=== PATIENT | male | born 1955 | race Caucasian/White ===

== ENCOUNTER 2020-11-29 21:28 | Emergency (ER) | payer MEDICARE, OTHER ==
[~2020-11-29 21:28] MED LIST: BREO ELLIPTA 11 EACH INH; CETIRIZINE HCL10 MG PO; INCRUSE ELLI62.5 MCG INH; LIPITOR TAB 1010 MG PO; OMEPRAZOLE40 MG PO; PREDNISONE 10 M10 MG PO; PROVENTIL HFA6.7 GM INH; TOPROL XL50 MG PO; ZOLOFT100 MG PO
[2020-11-29 22:39] LABS: HEMOGLOBIN 14.3 gm/dl (14.0-17.5); RED BLOOD COUNT 4.82 M/UL (4.20-5.50); WHITE BLOOD COUNT 10.4 K/UL (4.5-11.0)
[2020-11-29 23:09] LABS: BUN/CREATININE RATIO 17 (0-10)
[2020-11-29] MEDS ORDERED: PREDNISONE20 MG PO (23:31)
== END 2020-11-29 23:49 | disposition home or self-care (01) ==
LOC: ER1 21:28
PROVIDERS: Family Medicine
DX: J44.1 Chronic obstructive pulmonary disease with (acute) exacerbation (principal)
CPT/HCPCS: 71045; 80053; 82550; 82553; 84484; 85025; 94640; 94664; 96374; 99284; J2930

== ENCOUNTER 2021-10-08 17:54 | Inpatient (IN) | payer MEDICARE, OTHER ==
[~2021-10-08] VITALS: Ht 170.2 cm; Wt 74.4 kg
[~2021-10-08 17:54] MED LIST changes: -BREO ELLIPTA 11 EACH INH; -CETIRIZINE HCL10 MG PO; -LIPITOR TAB 1010 MG PO; -OMEPRAZOLE40 MG PO; +PREDNISONE20 MG PO; -PROVENTIL HFA6.7 GM INH; -TOPROL XL50 MG PO; -ZOLOFT100 MG PO
[2021-10-08 18:54] LABS: HEMOGLOBIN 14.6 gm/dl (14.0-17.5); RED BLOOD COUNT 5.02 M/UL (4.20-5.50); WHITE BLOOD COUNT 14.6 K/UL (4.5-11.0)
[2021-10-08 19:19] LABS: BUN/CREATININE RATIO 13 (0-10)
[2021-10-09 03:09] LABS: HEMOGLOBIN 13.8 gm/dl (14.0-17.5); RED BLOOD COUNT 4.76 M/UL (4.20-5.50); WHITE BLOOD COUNT 13.6 K/UL (4.5-11.0)
[2021-10-09 03:30] LABS: BUN/CREATININE RATIO 19 (0-10)
[2021-10-10 02:34] LABS: HEMOGLOBIN 12.3 gm/dl (14.0-17.5); RED BLOOD COUNT 4.25 M/UL (4.20-5.50); WHITE BLOOD COUNT 11.4 K/UL (4.5-11.0)
[2021-10-10 02:50] LABS: BUN/CREATININE RATIO 19 (0-10)
[2021-10-11 02:10] LABS: HEMOGLOBIN 12.5 gm/dl (14.0-17.5); RED BLOOD COUNT 4.32 M/UL (4.20-5.50); WHITE BLOOD COUNT 11.7 K/UL (4.5-11.0)
[2021-10-11 02:33] LABS: BUN/CREATININE RATIO 21 (0-10)
[2021-10-11] MEDS ORDERED: LIPITOR TAB 1010 MG PO (07:39)
[2021-10-11] MEDS ORDERED: BREO ELLIPTA 21 EACH INH (07:39)
[2021-10-11] MEDS ORDERED: OMEPRAZOLE40 MG PO (07:39)
[2021-10-11] MEDS ORDERED: TOPROL XL50 MG PO (07:39)
[2021-10-11] MEDS ORDERED: ZOLOFT100 MG PO (07:40)
[2021-10-11] MEDS ORDERED: CETIRIZINE HCL10 MG PO (07:40)
[2021-10-11] MEDS ORDERED: PROVENTIL HFA6.7 GM INH (07:41)
--- NOTE | 2021-10-11 14:02 | NUR ---
10/11/21 1127 PATIENT LEFT FLOOR FOR CT GUIDED BIOPSY WITH A 20G PERIPHERAL IV IN THE RIGHT AC, UPON RETURNING TO THE FLOOR THE IV HAD BEEN REMOVED AND A 22G HAD BEEN STARTED IN THE RIGHT HAND.
[2021-10-11] MEDS ORDERED: SPIRIVA RESPIMAT4 GM INH (15:28)
[2021-10-11] MEDS ORDERED: ONDANSETRON ODT8 MG PO (15:29)
[2021-10-11] MEDS ORDERED: IPRAT-ALBUT 0.5-3 ML INH (15:29)
[2021-10-13] MEDS ORDERED: HYDROCODON-ACE1 EAC2 PO (13:48)
[2021-10-13] MEDS ORDERED: ELIQUIS 2.5 MG2.5 MG PO (13:48)
== END 2021-10-13 21:46 | DRG 480 ==
LOC: ER1 17:54 → CDU 20:30 → PROG CARE 20:30 → M/S 10-11 17:09
PROVIDERS: Internal Medicine; Orthopaedic Surgery; Physician Assistant; ADMIT Internal Medicine
PROC: B24BZZZ Ultrasonography of Heart with Aorta (ICD-10-PCS; 2021-10-09)
PROC: 0QS704Z Reposition Left Upper Femur with Internal Fixation Device, Open Approach (ICD-10-PCS; principal; 2021-10-09 10:54)
PROC: 0FB13ZX Excision of Right Lobe Liver, Percutaneous Approach, Diagnostic (ICD-10-PCS; 2021-10-11)
DX: S72.012A Unspecified intracapsular fracture of left femur, initial encounter for closed fracture (principal); J96.21 Acute and chronic respiratory failure with hypoxia; J44.1 Chronic obstructive pulmonary disease with (acute) exacerbation; C78.7 Secondary malignant neoplasm of liver and intrahepatic bile duct; C34.11 Malignant neoplasm of upper lobe, right bronchus or lung; G81.94 Hemiplegia, unspecified affecting left nondominant side; J96.11 Chronic respiratory failure with hypoxia; E44.0 Moderate protein-calorie malnutrition; M21.6X2 Other acquired deformities of left foot; M21.832 Other specified acquired deformities of left forearm; K44.9 Diaphragmatic hernia without obstruction or gangrene; Z20.822 Contact with and (suspected) exposure to COVID-19; M21.052 Valgus deformity, not elsewhere classified, left hip; E78.5 Hyperlipidemia, unspecified; C44.212 Basal cell carcinoma of skin of right ear and external auricular canal; I10 Essential (primary) hypertension; Z51.5 Encounter for palliative care; W18.30XA Fall on same level, unspecified, initial encounter; Y92.009 Unspecified place in unspecified non-institutional (private) residence as the place of occurrence of the external cause; Z86.12 Personal history of poliomyelitis; Z87.891 Personal history of nicotine dependence; Z82.3 Family history of stroke; Z85.828 Personal history of other malignant neoplasm of skin; Z98.890 Other specified postprocedural states; Z99.81 Dependence on supplemental oxygen; Z79.01 Long term (current) use of anticoagulants
CPT/HCPCS: ECHO; 36415; 36600; 71045; 71250; 72192; 73502; 74160; 76000; 77012; 80048; 80053; 82550; 82553; 82803; 83880; 84439; 84443; 84484; 85025; 85610; 86140; 93005; 93306; 94640; 94664; 94760; 96374; 96375; 96376; 97110; 97116-GP-CQ; 97162; 97166; 97530; 97530-GP-CQ; 99285; C1713; J0690; J1100; J1170; J1650; J2001; J2250; J2370; J2405; J2704; J2795; J2920; J3010; Q9967; U0002